=== PATIENT | female | born 1990 | race Caucasian/White ===

== ENCOUNTER 2017-04-23 12:24 | Emergency (ER) | payer BC, OTHER ==
--- NOTE | 2017-04-23 13:12 | ERPHSYRPT ---
- History of Present Illness Time Seen by Provider: 04/23/17 13:02 Source: patient Exam Limitations: no limitations Patient Subjective Stated Complaint: pt states she is 5 weeks and began having vagianal bleeding this morning. pt states her is via IVF. pt states she has mild cramping but has had this same type of pain throughout the . Triage Nursing Assessment: pt pink,, warm, dry. minimal bleeding present on pad. pt afebrile. Physician History: The patient is a 26-year-old female at 5 and half weeks complaining of abdominal cramping that is mild and very mild vaginal bleeding that began today. She has fertility problems and has been taking IVF treatments. The impregnated embryo was implanted in her uterus 5 and half weeks ago. Her last quantitative hCG was Tuesday measuring 492. She comes in today worried and would like another quantitative hCG or ultrasound done. She states the abdominal cramping has been continuous throughout the entire . Timing/Duration: today Activites at Onset: none Quality: cramping, other (vaginal bleeding) Pain Radiation: none Severity of Pain-Max: mild Severity of Pain-Current: mild Prior abdominal problems: none Sexual intercourse history: other (IVF) Modifying Factors: Improves With: nothing Associated Symptoms: vaginal discharge Allergies/Adverse Reactions: No Known Drug Allergies Allergy (Unverified 04/23/17 12:47) Home Medications: Vits #93/Iron Fum/FA [ Formula Tablet] 1 each PO DAILY [History] Progesterone,Micronized [Endometrin] 100 mg VG BID 04/23/17 [History] Hx Tetanus, Diphtheria Vaccination/Date Given: Yes (up to date) Hx Influenza Vaccination/Date Given: No Hx Pneumococcal Vaccination/Date Given: No - Review of Systems Constitutional: No Fever, No Chills Eyes: No Symptoms Ears, Nose, & Throat: No Symptoms Respiratory: No Cough, No Dyspnea Cardiac: No Chest Pain, No Edema, No Syncope Abdominal/Gastrointestinal: No Abdominal Pain, No Nausea, No Vomiting, No Diarrhea Genitourinary Symptoms: Vaginal Bleeding Musculoskeletal: No Back Pain, No Neck Pain Skin: No Rash Neurological: No Dizziness, No Focal Weakness, No Sensory Changes Psychological: No Symptoms Endocrine: No Symptoms Hematologic/Lymphatic: No Symptoms Immunological/Allergic: No Symptoms All Other Systems: Reviewed and Negative - Past Medical History Pertinent Past Medical History: No - Past Surgical History Past Surgical History: Yes Other Surgical History: IVF - Social History Smoking Status: Former smoker Exposure to second hand smoke: No Drug Use: none Patient Lives Alone: No - Female History Hx Last Menstrual Period: unknown Expected Date of Delivery: 12/24/17 Gestational Age: 5 - Nursing Vital Signs Nursing Vital Signs: Initial Vital Signs Temperature 98.8 F 04/23/17 12:30 Pulse Rate 94 H 04/23/17 12:30 Respiratory Rate 18 04/23/17 12:30 Blood Pressure 156/82 04/23/17 12:30 O2 Sat by Pulse Oximetry 98 04/23/17 12:30 Pain Scale Pain Intensity 2 - Physical Exam General Appearance: no apparent distress, alert Eye Exam: PERRL/EOMI, eyes nml inspection Ears, Nose, Throat Exam: normal ENT inspection, TMs normal, pharynx normal, moist mucous membranes Neck Exam: normal inspection, non-tender, supple, full range of motion Respiratory Exam: normal breath sounds, lungs clear, No respiratory distress Cardiovascular Exam: regular rate/rhythm, normal heart sounds, normal peripheral pulses Gastrointestinal/Abdomen Exam: soft, No tenderness, No mass Pelvic Exam: not done Rectal Exam: not done Back Exam: normal inspection, normal range of motion, No CVA tenderness, No vertebral tenderness Extremity Exam: normal inspection, normal range of motion, pelvis stable Neurologic Exam: alert, oriented x 3, cooperative, lining baster II-XII nml as tested, normal mood/affect, sensation nml, No motor deficits Skin Exam: normal color, warm, dry Lymphatic Exam: No adenopathy SpO2 Interpretation: normal SpO2: 98 Oxygen Delivery: Room Air Ordered Tests: Active Orders 24 hr Category Date Time Status HCG, Quantitative (Inhouse) Stat Lab 04/23/17 13:25 Completed UA W/ MICROSCOPIC Stat Lab 04/23/17 13:20 Completed Lab/Rad Data: Laboratory Results 04/23/17 04/23/17 Range/Units 13:25 13:20 Beta HCG, Quant 3816 H (0-6) IU/L Ur Collection Type VOID Urine Color COLORLESS (YELLOW) Urine Appearance CLEAR (CLEAR) Urine pH 6.5 (5-6) Ur Specific [place] 1.005 (1.005-1.025) Urine Protein NEGATIVE (Negative) Urine Ketones NEGATIVE (NEGATIVE) Urine Blood 250 (0-5) Trung/ul Urine Nitrite NEGATIVE (NEGATIVE) Urine Bilirubin NEGATIVE (NEGATIVE) Urine Urobilinogen NORMAL (0-1) mg/dL Ur Leukocyte Esterase NEGATIVE (NEGATIVE) Urine Microscopic RBC 5-10 (0-2) /HPF Ur Epithelial Cells RARE (FEW) /HPF Urine Bacteria RARE (NEGATIVE) /HPF Urine Glucose NEGATIVE (NEGATIVE) mg/dL Specimen Received 04/23/17 1330 - Progress Counseled pt/family regarding: lab results - Departure Time of Disposition: 14:28 Departure Disposition: Home Clinical Impression: Condition: Stable Critical Care Time: No Referrals: IDALIA JOINER MD [Primary Care Provider] - Additional Instructions: You have a . Your quantitative hCG is 3816. Follow-up at her next scheduled OB visit on Tuesday. Take Tylenol as needed for pain.
[2017-04-23 13:51] LABS: Bacteria RARE /HPF (NEGATIVE); Bilirubin NEGATIVE (NEGATIVE); Blood 250 Ery/ul (0-5); COMPLETE URINE MICROSCOPIC? YES; Collection Type VOID; Epithelial Cells RARE /HPF (FEW); Glucose NEGATIVE (NEGATIVE); Leukocyte Esterase NEGATIVE (NEGATIVE)
[2017-04-23 13:52] LABS: ADD URINE CULTURE? NO (NO)
[2017-04-23 14:30] VITALS: O2SAT 98
[2017-04-23 14:41] VITALS: BP 148/76; PULSE 88
== END 2017-04-23 14:41 | disposition home or self-care (01) ==
LOC: ED 12:24
DX: O09.01 Supervision of pregnancy with history of infertility, first trimester (principal); O20.8 Other hemorrhage in early pregnancy; Z3A.01 Less than 8 weeks gestation of pregnancy
CPT/HCPCS: 36415; 81000; 84702; 99283

== ENCOUNTER 2022-05-02 10:23 | Emergency (ER) | payer BC, OTHER ==
[2022-05-02 10:49] VITALS: O2SAT 99
[2022-05-02] MEDS ORDERED: TORAdol 30 mg Injection IM ONE (10:56)
--- NOTE | 2022-05-02 11:01 | ERPHSYRPT ---
- History of Present Illness Source: patient Exam Limitations: no limitations Patient Subjective Stated Complaint: At concert last night, fell then got up and walked around on it. A few hours later ankle just gave out and fell again. Triage Nursing Assessment: pushed into room via wheelchair. fell twice last night at an outdoor concert. Rates pain 6/10 in left ankle. Ankle is swollen and bruised. Physician History: 31 yo wf fell and twister her L ankle last night. She denies other injuries/previous injury/. Method of Injury: fell Occurred: yesterday Quality: aching Severity of Pain-Max: moderate Severity of Pain-Current: moderate Lower Extremities Pain: ankle: left Modifying Factors: Improves With: movement Associated Symptoms: unable to bear weight Allergies/Adverse Reactions: No Known Drug Allergies Allergy (Unverified 04/23/17 12:47) Home Medications: Bupropion HCl 150 mg Sr [Wellbutrin SR 150 MG] 150 mg PO DAILY 05/02/22 [History] Hx Tetanus, Diphtheria Vaccination/Date Given: Yes Hx Influenza Vaccination/Date Given: Yes Hx Pneumococcal Vaccination/Date Given: No Immunizations Up to Date: Yes Travel Risk - International Travel Have you traveled outside of the country in past 3 weeks: No - Coronavirus Screening Are you exhibiting any of the following symptoms?: No Close contact with a COVID-19 positive Pt in past 14-21 Days: No - Vaccine Status Have you recieved a Covid-19 vaccination: No - Review of Systems Constitutional: No Symptoms Eyes: No Symptoms Ears, Nose, & Throat: No Symptoms Respiratory: No Symptoms Cardiac: No Symptoms Abdominal/Gastrointestinal: No Symptoms Genitourinary Symptoms: No Symptoms Skin: No Symptoms Neurological: No Symptoms Psychological: No Symptoms Endocrine: No Symptoms Hematologic/Lymphatic: No Symptoms Immunological/Allergic: No Symptoms - Past Medical History Pertinent Past Medical History: No Neurological History: Migraines Cardiac History: No Pertinent History Respiratory History: No Pertinent History GI Medical History: GERD History: No Pertinent History Psycho-Social History: Anxiety, Depression Female Reproductive Disorders: Other Other Medical History: PCOS, pinky fracture - Past Surgical History Past Surgical History: Yes Neuro Surgical History: No Pertinent History Cardiac: No Pertinent History Respiratory: No Pertinent History Gastrointestinal: No Pertinent History Genitourinary: No Pertinent History Musculoskeletal: No Pertinent History Female Surgical History: No Pertinent History Other Surgical History: breast augmentation - Social History Smoking Status: Light tobacco smoker How long have you smoked: 10 Exposure to second hand smoke: No Drug Use: none Patient Lives Alone: No (spouse) - Female History Hx Now: No - Nursing Vital Signs Nursing Vital Signs: Initial Vital Signs Pulse Rate 97 H 05/02/22 10:23 Respiratory Rate 18 05/02/22 10:23 Blood Pressure 126/88 05/02/22 10:23 O2 Sat by Pulse Oximetry 99 05/02/22 10:23 Pain Scale Pain Intensity 6 WNL - Physical Exam General Appearance: no apparent distress Eyes, Ears, Nose, Throat Exam: normal ENT inspection, TMs normal, pharynx normal, moist mucous membranes Neck Exam: normal inspection, non-tender, supple, full range of motion, No Brudzinski, No Kernig's, No meningismus, No carotid bruit Cardiovascular/Respiratory Exam: normal breath sounds, regular rate/rhythm, heart sounds normal, no respiratory distress Gastrointestinal/Abdominal Exam: non-tender, soft Back Exam: normal inspection, normal range of motion, No vertebral tenderness Hips Exam: bilateral: non-tender, normal inspection, normal range of motion, no evidence of injury Legs Exam: bilateral leg: non-tender, normal inspection, normal range of motion, no evidence of injury Knees Exam: bilateral knee: non-tender, normal inspection, normal range of motion, no evidence of injury Ankle Exam: left ankle: swelling (L ankle markedly edematous laterally/TTP laterally/pain w inversion/Good pedalpulse, distal sensation, and capillary return) Foot Exam: bilateral foot: non-tender, normal inspection, normal range of motion, no evidence of injury DTR - Lower Extremities Exam: knee (R): 2+, knee (L): 2+ Neuro/Tendon Exam: normal sensation, normal motor functions, normal tendon functions, responds to pain Mental Status Exam: alert, oriented x 3, cooperative Skin Exam: normal color, warm, dry, No rash SpO2 Interpretation: normal SpO2: 99 O2 Delivery: Room Air - Course Nursing assessment & vital signs reviewed: Yes - Radiology Exams Ankle X-ray Interpretation: Interpreted by me (L ankle neg) Ordered Tests: Active Orders 24 hr Category Date Time Status Murphy Bandage Application -[facility] STAT Care 05/02/22 11:34 Active ANKLE (3 VIEWS) Stat Exams 05/02/22 11:28 Taken Medication Summary Discontinued Medications Generic Name Dose Route Start Last Admin Trade Name Teetee PRN Reason Stop Dose Admin Ketorolac Tromethamine 30 mg 05/02/22 10:56 05/02/22 11:20 Ketorolac Tromethamine 30 Mg/Ml Inj IM 05/02/22 10:57 30 mg STAT ONE Administration Ketorolac Tromethamine Confirm 05/02/22 11:19 Ketorolac Tromethamine 30 Mg/Ml Inj Administered 05/02/22 11:20 Dose 30 mg .ROUTE .STK-MED ONE - Progress Progress: improved Progress Note: 05/02/22 11:34 30mg IM Toradol Murphy wrap per nursing/NVI Crutches refused by pt at this time 05/02/22 11:36 Counseled pt/family regarding: diagnosis, need for follow-up, rad results - Departure Departure Disposition: Home Clinical Impression: Ankle sprain Condition: Stable Critical Care Time: No Referrals: IDALIA JOINER MD [NON-STAFF PHY W/O PRIVILEGES] - Follow up/PCP as directed Instructions: Ankle Sprain (DC) Additional Instructions: Murphy wrap for 2-3 days Ice for 12-24 hours Motrin/Tylenol for pain Weight bearing as tolerated
[2022-05-02] MEDS ORDERED: TORAdol 30 mg Injection ONE (11:19)
[2022-05-02 12:40] VITALS: BP 122/78; PULSE 68
--- NOTE | 2022-05-02 19:48 | XRAY ---
Indication: Pain and swelling following fall. Comparison: None 3 view left ankle demonstrates anterior lateral soft tissue swelling and tiny posterior heel spur. No other bony, articular, or soft tissue abnormalities.
== END 2022-05-02 12:35 | disposition home or self-care (01) ==
LOC: ED 10:23
DX: S93.402A Sprain of unspecified ligament of left ankle, initial encounter (principal); W18.30XA Fall on same level, unspecified, initial encounter; M25.572 Pain in left ankle and joints of left foot; Z72.0 Tobacco use; Z79.899 Other long term (current) drug therapy; Z28.310 Unvaccinated for COVID-19
CPT/HCPCS: 73610; 96372; 99283; J1885